=== PATIENT | male | born 1940 | race Caucasian/White ===

== ENCOUNTER 2022-07-30 10:59 | Emergency (ER) | payer MEDICARE, MEDICAID, SELFPAY ==
--- NOTE | ~2022-07-30 | CT_ITS ---
EXAMINATION: CT SOFT TISSUE NECK WITH CONTRAST CLINICAL INFORMATION: Right neck mass. COMPARISON: There are no prior studies available for comparison. TECHNIQUE: Following the intravenous administration of 60 mL of Omnipaque 350 intravenous contrast, helical imaging was performed in the axial plane with generation of coronal and sagittal reformatted images. This CT examination was performed using dose optimization techniques as appropriate, variously including the following: *Automated exposure control *Adjustment of mA and/or kV according to patient size (this includes techniques or standardized protocols for targeted exams where dose is matched to indication/reason for exam; i.e. extremities or head) *Use of iterative reconstruction technique DLP: 602 mGy-cm FINDINGS: There is a relatively well-defined mass at the tail of the right parotid gland which measures 3.0 x 3.3 x 3.0 cm in oblique AP, transverse and craniocaudal dimensions. The remainder of the right parotid gland, and the left parotid gland appear normal. The submandibular glands appear normal bilaterally. There is no cervical lymphadenopathy. There are small lymph nodes at multiple levels in the neck and in the superior mediastinum. No contour abnormality or pathologic enhancement is seen within the oral cavity or pharyngeal mucosal space. The laryngeal structures are normal. The parapharyngeal fat is preserved. There are atheromatous calcifications of the carotid bifurcations bilaterally without flow-limiting stenosis. No extra mucosal soft tissue mass or fluid collection is seen. No retropharyngeal fluid collection is seen. The thyroid gland has slightly heterogenous attenuation. The mastoid air cells are well-aerated. There is moderate mucoperiosteal thickening in the right maxillary sinus. 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 The temporomandibular joints are normal. There are no acute osseous findings. There is hypertrophy kyphosis in the thoracic spine. There is marked calcification of the anterior longitudinal ligament, and there is straightening of the vertebral bodies. There are multilevel syndesmophytes. These findings may be consistent with ankylosing spondylitis. There are no acute fractures or subluxations. There are severe degenerative changes of the atlantoaxial joint. There are arthropathic changes of the acromioclavicular and sternoclavicular joints. There is scarring at the right lung apex, and there appear to be sequelae of prior surgery in the region. CT/CT soft tissue neck w IV con IMPRESSION: 1. There is a 3.3 cm mass at the tail of the right parotid gland, which may be consistent with a pleomorphic adenoma or other stenotic gland tumor. 2. There are extensive changes in the cervical spine, which may be consistent with ankylosing spondylitis. 3. There is no cervical lymphadenopathy. 4. There is scarring at the right lung apex, and there appear to be sequelae of prior surgery in the region. Correlate with patient surgical history
[2022-07-30 11:07] VITALS: BP 189/80; PULSE 74; RESP 20; TEMP 36.4; O2SAT 97; BMI 34.7
[2022-07-30 11:27] VITALS: BP 183/76; PULSE 68; RESP 16; TEMP 36.8; O2SAT 96
--- NOTE | 2022-07-30 11:37 | PC.NURSE ---
a&ox3, vs taken, pt resting comfortably. pt. Mongolian and irish speaking
--- NOTE | 2022-07-30 11:59 | ED.GENADULT ---
HPI - General Adult General Chief complaint: Skin/Abscess/Foreign Body Stated complaint: bump on R side of face Time Seen by Provider: 07/30/22 11:20 Source: patient Mode of arrival: ambulatory Limitations: no limitations History of Present Illness HPI narrative: Patient presented with right neck lump localize just below the right ear x2 days denies any fever chills vomiting Onset (ago): day(s) (2) Location: neck Radiation: non-radiation Severity: moderate Pain Consistency: constant Related Data Allergies Allergy/AdvReac Type Severity Reaction Status Date / Time Penicillins Allergy Unknown Unknown Verified 07/30/22 11:53 Review of Systems Review of Systems: Yes all other systems are reviewed and are negative ENT: Reports as per HPI Cardiovascular: Cardiovascular: Reports no additional cardiovascular complaints Respiratory: Respiratory: Reports no additional respiratory complaints PMF Past Medical History Medical History Angina of effort Hypertension Social History Social History Alcohol intake: never Smoked in Last 30 Days: No Use of substances other than those prescribed or required for medical reasons: No Advance Directives: No Physical Exam ED Vital Signs: Vital Signs - 24 hr 07/30/22 11:07 07/30/22 11:27 Temperature 97.6 F 98.2 F Pulse Rate 74 68 Respiratory Rate 20 16 Blood Pressure 189/80 H 183/76 H Pulse Oximetry 97 96 Oxygen Delivery Method Room Air Room Air BMI result Body Mass Index 34.7 Const General: cooperative Nutritional Appearance: well nourished Orientation/consciousness: patient oriented x3 Limitations: no limitations HENMT Head: Yes normal to inspection General nose exam: Normal external nose present Face and sinus: Yes normal facial exam Mouth: Normal oral and palatal mucosa present Neck Other: 3X3 cm cystic lesion rt neck Thyroid: Thyroid normal Resp Effort & Inspection: normal respiratory effort Auscultation: clear to auscultation bilaterally Cardio Jugular venous distension: no JVD Rate: regular rate Rhythm: regular rhythm GI Inspection: Yes normal to inspection Palpation (GI): Soft to palpation, not firm, nontender and no guarding Auscultation: normal bowel sounds Skin General skin exam: no rashes or lesions noted and elasticity normal Neuro General: patient oriented x3 Course Reevaluation(s) Reevaluation #1: CT scan shows a 3.3 cm mass in the right parotid gland patient is otherwise afebrile and nontoxic O2 sat is normal labs are normal, he can be d/c home with follow-up with ENT Time: 16:45 Medications Administered Discontinued Medications Generic Name Dose Route Start Last Admin Trade Name Freq PRN Reason Stop Dose Admin Iohexol 100 ml 07/30/22 14:07 07/30/22 14:08 Iohexol 350 Mg/Ml 100 Ml Infus..Btl IV 07/30/22 14:08 60 ml ONCE ONE Administration Medical Decision Making Medical Decision Making [facility] Narrative: Presented with the cystic lesion in the right neck we will get imaging CT Differential Diagnosis Differential Diagnoses: The differential diagnosis associated with the presentation includes Question abscess question lymphadenopathy Admission/Observation Consideration of admission/observation: Escalation of care including admission/observation considered Lab Data [facility] Lab Attestation statement: I reviewed the patient's lab results. 07/30/22 12:14 07/30/22 13:05 Labs: Lab Results 07/30/22 07/30/22 Range/Units 12:14 13:05 WBC 7.4 (4.8-10.8) X10*3/uL RBC 5.12 (4.60-5.80) X10*6/uL Hgb 14.4 (14.0-18.0) g/dl Hct 43.6 (42.0-52.0) % MCV 85.2 (80.0-98.0) fL MCH 28.1 (27.0-33.0) pg MCHC 33.0 (31.0-36.0) g/dl RDW 14.1 (11.0-16.0) % Plt Count 204 (160-400) X10*3/uL MPV 9.5 (9.4-12.4) fL Immature Gran % (Auto) 0.3 (0.0-0.4) % Neut % (Auto) 83.0 H (45-73) % Lymph % (Auto) 9.6 L (20-40) % [place] % (Auto) 6.0 (2-11) % Eos % (Auto) 0.3 (0-4) % Baso % (Auto) 0.8 (0-2) % Lymph # (Auto) 0.7 L (1.2-4.9) X10*3/uL [place] # (Auto) 0.4 (0.1-1.2) X10*3/uL Eos # (Auto) 0.0 (0.0-0.4) X10*3/uL Baso # (Auto) 0.1 (0.0-0.2) X10*3/uL Abs Immat Gran (auto) 0.02 (0.00-0.03) X10*3/uL Absolute Neuts (auto) 6.1 (2.0-8.3) x10*3/uL Absolute Nucleated RBC 0.000 (0.0-0.012) X10*3/uL Nucleated RBC % (auto) 0.0 (0.0-0.2) /100WBC Sodium 138 (135-145) mmol/L Potassium 4.0 (3.3-5.1) mmol/L Chloride 109 H (96-108) mmol/L Carbon Dioxide 22 (22-29) mmol/L Anion Gap 11 L (12-20) BUN 16 (9-16) mg/dL Creatinine 0.70 (0.5-1.4) mg/dL Estim Creat Clear Calc 76.0 Estimated GFR > 60 Random Glucose 96 (60-115) mg/dL Calcium 8.4 (8.4-10.2) mg/dL Total Bilirubin 0.6 (0.0-1.0) mg/dL AST 17 (5-37) U/L ALT 13 (0-40) U/L Alkaline Phosphatase 121 H (39-117) U/L Total Protein 6.3 L (6.5-8.0) g/dL Albumin 3.9 (3.5-5.0) g/dL Radiology Impression Discussion of test interpretation with radiology: I have reviewed the radiologist's reading. Radiologist Impression: s in the thoracic spine. There is marked calcification of the anterior longitudinal ligament, and there is straightening of the vertebral bodies. There are multilevel syndesmophytes. These findings may be consistent with ankylosing spondylitis. There are no acute fractures or subluxations. There are severe degenerative changes of the atlantoaxial joint. There are arthropathic changes of the acromioclavicular and sternoclavicular joints. There is scarring at the right lung apex, and there appear to be sequelae of prior surgery in the region. CT/CT soft tissue neck w IV con IMPRESSION: 1. There is a 3.3 cm mass at the tail of the right parotid gland, which may be consistent with a pleomorphic adenoma or other stenotic gland tumor. ? 2. There are extensive changes in the cervical spine, which may be consistent with ankylosing spondylitis. ? 3. There is no cervical lymphadenopathy. ? 4. There is scarring at the right lung apex, and there appear to be sequelae of prior surgery in the region. Correlate with patient surgical history ? Discharge Plan Discharge Clinical Impression: Mass of right parotid gland Patient Disposition: Home, Self-Care Instructions: Parotid Duct Obstruction (ED) Additional Instructions: You have a mass of the parotid mass most likely benign,you need to follow up with specialist (Ear Nose Throat Specialist ) call Monday Morning,take antiinflammatory Ibuprophen/motrin ,return if wortse> Also you should called your PCP Monday and arrange appointment with Primary Care Doctor Referrals: Edilson Garcia [Physician] - 2 days
[2022-07-30 12:18] LABS: MANUAL DIFF FLAG NO
[2022-07-30 12:22] LABS: Basophils Absolute Auto 0.1 X10*3/uL (0.0-0.2); Basophils Percent Auto 0.8 % (0-2); Eosinophils Percent Auto 0.3 % (0-4); Hematocrit 43.6 % (42.0-52.0); Hemoglobin 14.4 g/dl (14.0-18.0); Imm Gran Abs Auto 0.02 X10*3/uL (0.00-0.03); Imm Gran Pct Auto 0.3 % (0.0-0.4); Lymphocytes Absolute Auto 0.7 X10*3/uL (1.2-4.9); Lymphocytes Percent Auto 9.6 % (20-40); Mean Corpuscular Hemoglobin 28.1 pg (27.0-33.0); Mean Corpuscular Volume 85.2 fL (80.0-98.0); Mean Platelet Volume 9.5 fL (9.4-12.4); Monocytes Absolute Auto 0.4 X10*3/uL (0.1-1.2); Neutrophils Absolute Auto 6.1 x10*3/uL (2.0-8.3); Platelet Count 204 X10*3/uL (160-400); Red Blood Count 5.12 X10*6/uL (4.60-5.80); Red Cell Distribution Width 14.1 % (11.0-16.0); White Blood Count 7.4 X10*3/uL (4.8-10.8)
[2022-07-30 13:36] LABS: Alanine Aminotransferase 13 U/L (0-40); Albumin Level 3.9 g/dL (3.5-5.0); Alkaline Phosphatase 121 U/L (39-117); Anion Gap 11 (12-20); Aspartate Amino Transferase 17 U/L (5-37); Bilirubin Total 0.6 mg/dL (0.0-1.0); Blood Urea Nitrogen 16 mg/dL (9-16); Calcium 8.4 mg/dL (8.4-10.2); Carbon Dioxide 22 mmol/L (22-29); Chloride 109 mmol/L (96-108); Estimated Glomerular Filt Rate > 60; Glucose Random 96 mg/dL (60-115); Sodium 138 mmol/L (135-145); Total Protein 6.3 g/dL (6.5-8.0)
[2022-07-30] MEDS: iohexoL 350 MG/ML 100 ML INFUS..BTL IV (14:08)
[2022-07-30 17:44] VITALS: BP 201/94; PULSE 73; RESP 16; O2SAT 96
== END 2022-07-30 17:50 | disposition home or self-care (01) ==
PROVIDERS: Emergency Provider Emergency Medicine; PCP Physician Assistant Medical
DX: D37.030 Neoplasm of uncertain behavior of the parotid salivary glands (principal); R22.1 Localized swelling, mass and lump, neck; I10 Essential (primary) hypertension
CPT/HCPCS: 36415; 70491; 80053; 85025; 99284; Q9967